=== PATIENT | male | born 1970 | race Caucasian/White ===

== ENCOUNTER 2020-01-11 07:25 | Emergency (ER) | payer SELFPAY ==
[2020-01-11] MEDS ORDERED: Aspirin 81 mg CHEW TAB* 81 MG TAB.CHEW PO ONE (07:52)
--- NOTE | 2020-01-11 08:30 | ED ---
HPI Chest Pain - HPI Summary HPI Summary: This patient is a 49 y/o male presenting to [facility] c/o sudden onset of chest tightness today at 0630. 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 He notes associated symptoms of nausea and lightheadedness. Patient describes a mid sternal tightness that does not radiate. Patient pulled over and walked around for a few minutes and his nausea resolved. However he states chest tightness has persisted and upon his arrival to the ED he rates it 6 or 7 out of 10 in severity. Pt currently rates his chest tightness 3/10 in severity. Denies fever , chills, vomiting, shortness of breath, cough. Patient reports 1.5 months ago he had an episode of chest tightness and palpitations, where he could feel and see his heart beat through his shirt. Patient went to [facility] where he was worked up and additionally given a 48 hour holter monitor. He notes all his results were normal and was supposed to get an echo but missed it as he was out of town for work. Patient still needs to reschedule his echo. He has not had a stress test. Patient reports he goes through pulmonary function tests and chest XR for work. He denies any PMHx of HTN or DM. FHx of DM in mother and heart ablation in father. He denies any FHx of PA at his age. Patient is a former smoker, quit 5 years ago. He admits to having 2 beers a week. Denies any drug use. Home Medications Medication Instructions Recorded Confirmed Type NK [No Home Medications Reported] 01/11/20 01/11/20 History - History of Current Complaint Chief Complaint: EDChestWallPain Time Seen by Provider: 01/11/20 08:19 Hx Obtained From: Patient Onset/Duration: Started Hours Ago, Still Present Timing: Constant Initial Severity: Moderate Current Severity: Mild Pain Intensity: 3 Pain Scale Used: 0-10 Numeric Chest Pain Location: Mid Sternal Chest Pain Radiates: No Character: Tightness Aggravating Factor(s): Nothing Alleviating Factor(s): Nothing Associated Signs and Symptoms: Positive: Chest Pain, Nausea. Negative: Shortness of Breath, Fever, Chills, Cough, Vomiting - Allergy/Home Medications Allergies/Adverse Reactions: Allergies Allergy/AdvReac Type Severity Reaction Status Date / Time bee venom protein (honey bee) Allergy Anaphylatic Verified 01/11/20 07:36 Shock Penicillins Allergy Unknown Verified 01/11/20 07:34 Reaction Details Home Medications: Home Medications NK [No Home Medications Reported] 01/11/20 [History Confirmed 01/11/20] PMH/Surg Hx/FS Hx/Imm Hx Endocrine/Hematology History: Denies: Hx Diabetes Cardiovascular History: Denies: Hx Hypertension Infectious Disease History: No Infectious Disease History: Denies: Traveled Outside the [place] in Last 30 Days - Family History Known Family History: Positive: Hypertension, Diabetes - mother Family History: Father with heart valve "issues" and heart ablation - Social History Alcohol Use: Occasionally Alcohol Amount: 2 beers a week Substance Use Type: Reports: None Smoking Status (MU): Former Smoker Amount Used/How Often: Quit smoking 5 years ago Review of Systems Negative: Fever, Chills Positive: Chest Pain Negative: Shortness Of Breath, Cough Positive: Nausea. Negative: Vomiting Neurological/Mental Status: Other - POSITIVE: lightheadedness All Other Systems Reviewed And Are Negative: Yes Physical Exam - Summary Physical Exam Summary: VITAL SIGNS: Reviewed. GENERAL: Patient is a well-developed and nourished male who is lying comfortable in the stretcher. Patient is not in any acute respiratory distress. HEAD AND FACE: No signs of trauma. No ecchymosis, hematomas or skull depressions. No sinus tenderness. EYES: PERRLA, EOMI x 2, No injected conjunctiva, no nystagmus. EARS: Hearing grossly intact. Ear canals and tympanic membranes are within normal limits. MOUTH: Oropharynx within normal limits. NECK: Supple, trachea is midline, no adenopathy, no JVD, no carotid bruit, no c- spine tenderness, neck with full ROM. CHEST: Symmetric, no tenderness at palpation LUNGS: Clear to auscultation bilaterally. No wheezing or crackles. CVS: Regular rate and rhythm, S1 and S2 present, no murmurs or gallops appreciated. ABDOMEN: Soft, non-tender. No signs of distention. No rebound no guarding, and no masses palpated. Bowel sounds are normal. EXTREMITIES: FROM in all major joints, no edema, no cyanosis or clubbing. NEURO: Alert and oriented x 3. No acute neurological deficits. Speech is normal and follows commands. SKIN: Dry and warm Triage Information Reviewed: Yes Vital Signs On Initial Exam: Initial Vitals Temp Pulse Resp BP Pulse Ox 98.0 F 81 18 132/71 100 01/11/20 07:27 01/11/20 07:27 01/11/20 07:27 01/11/20 07:27 01/11/20 07:27 Vital Signs Reviewed: Yes Procedures - Sedation Patient Received Moderate/Deep Sedation with Procedure: No Diagnostics - Vital Signs Vital Signs Temp Pulse Resp BP Pulse Ox 01/11/20 07:27 98.0 F 81 18 132/71 100 - Laboratory Result Diagrams: 01/11/20 08:15 01/11/20 08:15 Lab Statement: Any lab studies that have been ordered have been reviewed, and results considered in the medical decision making process. - Radiology Chest XR Radiology Interpretation Completed By: Radiologist Summary of Radiographic Findings: IMPRESSION: No active cardiopulmonary disease is noted. Dr. Perez has reviewed this report. - EKG 07:34 Cardiac Rate: NL - at 98 bpm EKG Rhythm: Sinus Rhythm Ectopy: PVCs Summary of EKG Findings: EKG at 0734 shows normal sinus rhythm at a rate of [address] elevations. Multiple PVCs. This EKG was interpreted and reviewed by ED physician. Chest Pain Course/Dx - Course Assessment/Plan: This patient is a 49 y/o male presenting to [facility] c/o sudden onset of chest tightness today at 0630. 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 He notes associated symptoms of nausea and lightheadedness. Patient describes a mid sternal tightness that does not radiate. Patient pulled over and walked around for a few minutes and his nausea resolved. However he states chest tightness has persisted and upon his arrival to the ED he rates it 6 or 7 out of 10 in severity. Pt currently rates his chest tightness 3/10 in severity. Denies fever, chills, vomiting, shortness of breath, cough. Patient reports 1.5 months ago he had an episode of chest tightness and palpitations, where he could feel and see his heart beat through his shirt. Patient went to [facility] where he was worked up and additionally given a 48 hour holter monitor. He notes all his results were normal and was supposed to get an echo but missed it as he was out of town for work. Patient still needs to reschedule his echo. He has not had a stress test. Patient reports he goes through pulmonary function tests and chest XR for work. He denies any PMHx of HTN or DM. FHx of DM in mother and heart ablation in father. He denies any FHx of PA at his age. Patient is a former smoker, quit 5 years ago. He admits to having 2 beers a week. Denies any drug use. Blood tests without any significant abnormality except for glucose of 115. Troponin #1 is 0.00. EKG showed normal sinus rhythm without any ST elevations. Chest x-ray impression: No acute cardiopulmonary disease. Second troponin is 0.00. Patient reports that all symptoms have resolved. Patient Heart score is: 1 therefore, low suspicion for CAD. Patient is not hypoxic or tachycardic. Wells criteria 0 . Therefore, no suspicion for PE. Patient has no abdominal bruit thus no suspicion for AAA. Patients pain does not radiate to the back and pain has resolved thus low suspicion for aortic dissection. I discussed all the findings and test results with the patient. Patient was instructed to return to the emergency room immediately if any of the symptoms return or worsen. Patient understands and agrees. Plan of care was discussed with the patient and patient understands and agrees. All questions were answered at patient satisfaction. There were no further complaints or concerns. PE before discharge: CVS: S1 and S2 present. No murmurs appreciated. Abdominal exam before discharge: Soft, non-tender. No signs of distention. No rebound no guarding, and no masses palpated. Bowel sounds are normal. Patient is alert and oriented x 3. Patient is hemodynamically stable. - Diagnoses Provider Diagnoses: Chest pain Discharge ED - Sign-Out/Discharge Documenting (check all that apply): Patient Departure - Discharge home - Discharge Plan Condition: Stable Disposition: HOME Patient Education Materials: Chest Pain (ED) Referrals: [facility] [Outside] Additional Instructions: FOLLOW UP WITH YOUR PRIMARY CARE PROVIDER IN 2-3 DAYS. RETURN TO THE EMERGENCY DEPARTMENT FOR ANY WORSENING OR NEW SYMPTOMS. - Billing Disposition and Condition Condition: STABLE Disposition: Home - Attestation Statements Document Initiated by Scribe: Yes Documenting Scribe: Lynn Knight Provider For Whom Scribe is Documenting (Include Credential): Kosta Perez MD Scribe Attestation: I, Lynn Knight, scribed for Kosta Perez MD on 01/13/20 at 0751. Scribe Documentation Reviewed: Yes Provider Attestation: The documentation as recorded by the scribeLynn accurately reflects the service I personally performed and the decisions made by me, Kosta Perez MD Status of Scribe Document: Viewed
[2020-01-11 08:31] LABS: ABS Eosinophils 0.1 10^3/ul (0-0.6); ABS Lymphocytes 1.3 10^3/ul (1.0-4.8); ABS Monocytes 0.5 10^3/ul (0-0.8); ABS Neutrophils 5.5 10^3/ul (1.5-7.7); Eosinophil % 1.9 %; Hematocrit 45 % (42-52); Hemoglobin 15.5 g/dL (14.0-18.0); Lymphocyte % 17.3 %; Mean Corpuscular HGB Conc 35 g/dL (31-36); Mean Corpuscular Hemoglobin 30 pg (27-31); Mean Corpuscular Volume 86 fL (80-94); Mean Platelet Volume 8.4 fL (7.4-10.4); Platelet Count 222 10^3/uL (150-450); Red Blood Count 5.17 10^6 /uL (4.18-5.48); Red Cell Distribution Width 14 % (10-15); White Blood Count 7.5 10^3/uL (3.5-10.8)
[2020-01-11 08:36] LABS: INR 1.03 (0.82-1.09)
[2020-01-11 08:48] LABS: Albumin 4.4 g/dL (3.2-5.2); Albumin/Globulin Ratio 1.6 (1-3); BUN/Creatinine Ratio 17.4 (8-20); Calcium 9.3 mg/dL (8.6-10.3); EGFR African American 115.3 (>60); EGFR Non-African American 95.3 (>60); Globulin 2.8 g/dL (2-4); Total Bilirubin 0.6 mg/dL (0.2-1.0); Total Protein 7.2 g/dL (6.4-8.9)
[2020-01-11 08:55] LABS: CKMB ng/mL 1.9 ng/mL (0.6-6.3)
[2020-01-11 08:58] LABS: Potassium 3.9 mmol/L (3.5-5.0)
[2020-01-11 09:36] LABS: TSH (Thyroid Stimulating Horm) 2.2 mcIU/mL (0.34-5.60)
[2020-01-11] MEDS ORDERED: Ketorolac *IM* INJ* 60 MG/2 ML VIAL IM ONE (10:05)
[2020-01-11] MEDS ORDERED: Ketorolac INJ* 30 MG/ML 1 ML VIAL IV PUSH ONE (10:21)
[2020-01-11 11:57] VITALS: BP 115/73
== END 2020-01-11 11:56 | disposition home or self-care (01) ==
LOC: ED 07:25
DX: R07.89 Other chest pain (principal); R11.0 Nausea; R42 Dizziness and giddiness; R00.0 Tachycardia, unspecified; Z88.0 Allergy status to penicillin; Z91.030 Bee allergy status; Z82.49 Family history of ischemic heart disease and other diseases of the circulatory system; Z83.3 Family history of diabetes mellitus; Z87.891 Personal history of nicotine dependence
CPT/HCPCS: 36415; 71045; 80053; 82550; 82553; 83735; 83880; 84443; 84484; 85025; 85610; 93005; 96374; 99282; A9270-GY; J1885